=== PATIENT | female | born 1960 | race Caucasian/White ===

== ENCOUNTER → 2019-02-17 | Outpatient (CLI) | payer OTHER ==
[2019-02-17 13:33] LABS: Basophils # (A) 0.1 k/uL (0-0.2); Basophils % (A) 1 %; Eosinophils # (A) 0.2 k/uL (0-0.7); Eosinophils % (A) 2 %; HCT 42.1 % (34.0-46.0); HGB 13.7 gm/dL (11.4-16.0); Lymphocytes # (A) 2.5 k/uL (1.0-4.8); Lymphocytes % (A) 25 %; MCH 30.5 pg (25.0-35.0); MCHC 32.6 g/dL (31.0-37.0); MCV 93.5 fL (80.0-100.0); Mean Platelet Volume 6.8; Monocytes # (A) 0.5 k/uL (0-1.0); Monocytes % (A) 5 %; Neutrophils # (A) 6.8 k/uL (1.3-7.7); Neutrophils % (A) 67 %; Platelet Count 285 k/uL (150-450); RDW 13.3 % (11.5-15.5); WBC 10.2 k/uL (3.8-10.6)
[2019-02-17 15:57] LABS: Erythrocyte Sedimentation Rate 18 mm/hr (0-20)
[2019-02-17 19:58] LABS: Vitamin D 25 Hydroxy 19.2 ng/mL (30.0-100.0)
[2019-02-17 20:53] LABS: Hepatitis C IgG Antibody Non-Reactive (Non-Reactive)
[2019-02-17 21:44] LABS: ALT 19 U/L (8-44); AST 18 U/L (13-35); African American GFR (CKD) 93.5 (60.0-200.0); Albumin/Globulin Ratio 2.19 (1.60-3.17); Alkaline Phosphatase 70 U/L (41-126); BUN/Creat Ratio 18.75 Ratio (12.00-20.00); Calcium 10.1 mg/dL (8.7-10.3); Carbon Dioxide 26.2 mmol/L (21.6-31.8); Chloride 103 mmol/L (96-109); Chol/HDL Ratio 5.52; Cholesterol 243 mg/dL (0-200); Creatine Kinase 89 U/L (26-186); Globulin 2.1 g/dL (1.6-3.3); Glucose 100 mg/dL (70-110); Potassium 4.3 mmol/L (3.5-5.5); Sodium 143 mmol/L (135-145); Total Bilirubin 0.3 mg/dL (0.3-1.2); Total Protein 6.7 g/dL (6.2-8.2); Uric Acid 8.1 mg/dL (2.9-7.7)
== END | disposition home or self-care (01) ==
LOC: LABWHC1 12:40
PROVIDERS: ATTEND Internal Medicine
DX: I10 Essential (primary) hypertension (principal); E78.5 Hyperlipidemia, unspecified; D64.9 Anemia, unspecified; M10.9 Gout, unspecified; E03.9 Hypothyroidism, unspecified; E55.9 Vitamin D deficiency, unspecified; E66.9 Obesity, unspecified
CPT/HCPCS: 36415; 80053; 80061; 82272; 82306; 82550; 83721; 84439; 84443; 84550; 85025; 85652; 86140; 86803

== ENCOUNTER → 2019-03-06 | Outpatient (CLI) | payer OTHER ==
--- NOTE | 2019-03-06 09:40 | US ---
EXAMINATION TYPE: US abdomen complete DATE OF EXAM: 03/06/2019 COMPARISON: NONE CLINICAL HISTORY: R10.11 RUQ ABD PAIN. Right Side ABD pain EXAM MEASUREMENTS: Liver Length: 19.8 cm Gallbladder Wall: 0.3 cm CBD: 0.5 cm Spleen: 10.6 cm Right Kidney: 11.8 x 4.8 x 5.5 cm Left Kidney: 11.5 x 5.9 x 5.5 cm Pancreas: wnl, tail obscured by overlying bowel gas Liver: Enlarged, heterogeneous, nonspecific small hypoechoic lesion left anterior lobe= 1.3 x 0.7 x 1.2 cm Gallbladder: Multiple, mobile gallstones, wall not thickened Evidence for sonographic Mcdermott's sign: No CBD: wnl Spleen: wnl Right Kidney: Lobulated contour, otherwise appeared wnl Left Kidney: Lobulated contour, otherwise appeared wnl Upper IVC: wnl Abd Aorta: wnl The visualized liver is heterogeneous hyperechoic. Evaluation for focal masses suboptimal due to the heterogeneity. The intrahepatic portion of the IVC and proximal abdominal aorta are within normal isaac its. There is evidence of large mobile shadowing gallstones. Common bile duct is unremarkable. The visualized portions of the pancreas are homogenous. The spleen is unremarkable. Kidneys are symmet fide and free of hydronephrosis. No renal lesions are seen. IMPRESSION: Gallstones without secondary ultrasound evidence for acute cholecystitis. Patient with ri ght upper quadrant pain consider HIDA scan to ensure. Probable fatty infiltration of liver.
== END | disposition home or self-care (01) ==
LOC: RADUSWWP 07:53
PROVIDERS: ATTEND Internal Medicine
DX: K80.20 Calculus of gallbladder without cholecystitis without obstruction (principal)
CPT/HCPCS: 76700

== ENCOUNTER → 2019-03-25 | Outpatient (CLI) | payer OTHER ==
--- NOTE | 2019-03-28 10:18 | MM ---
Reason for exam: screening (asymptomatic). Last mammogram was performed 11 years and 6 months ago. History: Family history of breast cancer in grandmother, breast cancer in aunt, and breast cancer in mother. Took hormonal contraceptives for 2 years. Physical Findings: A clinical breast exam by your physician is recommended on an annual basis and results should be correlated with mammographic findings. MG Screening Mammo w CAD Bilateral CC and MLO view(s) were taken. Prior study comparison: September 26, 2007, bilateral diagnostic digital mammog. Finding: There is an equal density (isodense), indistinct round mass located 5 cm from the nipple in the upper outer quadrant of the right breast. New finding since September 26, 2007. ASSESSMENT: Incomplete: need additional imaging evaluation, BI-RAD 0 RECOMMENDATION: Special view mammogram of the right breast. If lesion persists on supplemental views, image directed ultrasound is recommended. [facility] will attempt to contact patient to return for supplemental views and ultrasound if indicated.
== END ==
LOC: RADMAMWWP 16:09
PROVIDERS: ATTEND Internal Medicine
DX: Z12.31 Encounter for screening mammogram for malignant neoplasm of breast (principal)
CPT/HCPCS: 77067

== ENCOUNTER → 2019-04-03 | Outpatient (CLI) | payer OTHER ==
--- NOTE | 2019-04-03 09:10 | NM ---
EXAMINATION TYPE: NM hepatobiliary w EF DATE OF EXAM: 04/03/2019 COMPARISON: US 03/06/19 HISTORY: Biliary tract disorder, K83.9 TECHNIQUE: After the intravenous administration of 4.77 mCi Tc 99m Mebrofenin hepatobiliary scintigra phy is performed. Immediate images post injection. FINDINGS: There is satisfactory initial accumulation of tracer by the liver. The gallbladder is visualized wit hin 10 minutes. The small bowel activity is noted within 24 minutes. At one hour 8 ounces of oral e nsure plus is given to mimic CCK and gallbladder ejection fraction is calculated at 70 %, in the norm al range. Therefore there is no scintigraphic evidence of cystic or common bile duct obstruction to suggest acute cholecystitis or gallbladder dyskinesia. IMPRESSION: Exam is within normal limits.
== END | disposition home or self-care (01) ==
LOC: RADNMMAIN 06:40
PROVIDERS: ATTEND Internal Medicine
DX: K83.9 Disease of biliary tract, unspecified (principal)
CPT/HCPCS: 78226; A9537

== ENCOUNTER → 2019-04-16 | Outpatient (CLI) | payer OTHER ==
--- NOTE | 2019-04-16 10:55 | MM ---
Reason for exam: additional evaluation requested from abnormal screening. Last mammogram was performed 1 month ago. History: Family history of breast cancer in grandmother, breast cancer in aunt, and breast cancer in mother. Took hormonal contraceptives for 2 years. Physical Findings: Nurse did not find any significant physical abnormalities on exam. MG Work Up Mamm w CAD RT Spot compression CC, spot compression MLO, and LM view(s) were taken of the right breast. Prior study comparison: March 25, 2019, bilateral MG screening mammo w CAD. September 26, 2007, bilateral diagnostic digital mammog. There are scattered fibroglandular densities. Benign appearing calcifications in the right breast. The previously seen abnormality resolves on additional views and appears as fibroglandular tissue compatible with summation. No suspicious abnormality. These results were verbally communicated with the patient and result sheet given to the patient on 04/16/19. ASSESSMENT: Benign, BI-RAD 2 RECOMMENDATION: Return to routine screening mammogram schedule for both breasts.
== END | disposition home or self-care (01) ==
LOC: RADMAMWWP 10:02
PROVIDERS: ATTEND Internal Medicine
DX: R92.8 Other abnormal and inconclusive findings on diagnostic imaging of breast (principal)
CPT/HCPCS: 77065

== ENCOUNTER → 2020-06-29 | Outpatient (CLI) | payer OTHER ==
[2020-06-29 15:23] LABS: ALT 20 U/L (8-44); AST 17 U/L (13-35); African American GFR (CKD) 109.1 (60.0-200.0); Albumin/Globulin Ratio 2.25 (1.60-3.17); Alkaline Phosphatase 66 U/L (41-126); BUN/Creat Ratio 22.86 Ratio (12.00-20.00); Bilirubin, Conjugated <0.20 mg/dL (0.20-0.40); Calcium 9.5 mg/dL (8.7-10.3); Carbon Dioxide 32.2 mmol/L (21.6-31.8); Chloride 102 mmol/L (96-109); Chol/HDL Ratio 7.56; Cholesterol 295 mg/dL (0-200); Folate, Serum 20.4 ng/mL; Glucose 98 mg/dL (70-110); Non-African American GFR(CKD) 94.2 (60.0-200.0); Potassium 4.2 mmol/L (3.5-5.5); Sodium 141 mmol/L (135-145); Total Bilirubin 0.4 mg/dL (0.2-1.2); Total Protein 6.5 g/dL (6.2-8.2); Uric Acid 8.3 mg/dL (2.9-7.7)
[2020-06-29 17:21] LABS: Hemoglobin A1C 6.1 % (4.0-6.0)
== END | disposition home or self-care (01) ==
LOC: LABWHC1 09:19
PROVIDERS: ATTEND Internal Medicine
DX: Z00.00 Encounter for general adult medical examination without abnormal findings (principal); E11.9 Type 2 diabetes mellitus without complications; I10 Essential (primary) hypertension; E79.0 Hyperuricemia without signs of inflammatory arthritis and tophaceous disease; E56.9 Vitamin deficiency, unspecified; E03.9 Hypothyroidism, unspecified; E78.5 Hyperlipidemia, unspecified; R53.82 Chronic fatigue, unspecified
CPT/HCPCS: 36415; 80048; 80061; 80076; 82306; 82607; 82746; 83036; 83721; 84439; 84443; 84550

== ENCOUNTER 2020-07-24 08:32 | Emergency (ER) | payer OTHER ==
[2020-07-24 08:36] VITALS: BP 132/83; PULSE 74; RESP 16; TEMP 98.4
--- NOTE | 2020-07-24 08:52 | ED ---
General Adult HPI - General Chief complaint: Extremity Injury, Lower Stated complaint: slip & fall Time Seen by Provider: 07/24/20 08:34 Source: patient, RN notes reviewed Mode of arrival: ambulatory Limitations: no limitations - History of Present Illness Initial comments: Patient is a pleasant 59-year-old female presenting to the emergency Department with complaints of right knee pain. Patient states 3 days ago she slipped and fell on the ice. Patient landed gently on her right knee. Patient has discomfort of the right knee since that time. No other area of injury or concern. Patient is a with pain. No head injury or loss of consciousness. No neck or back pain. No history of chronic knee pain. - Related Data Home Medications Medication Instructions Recorded Confirmed ALPRAZolam [Xanax XR] 1 mg PO BID 07/24/20 07/24/20 Atorvastatin [Lipitor] 40 mg PO DAILY 07/24/20 07/24/20 Cholecalciferol (Vitamin D3) 125 mcg PO DAILY 07/24/20 07/24/20 [Vitamin D3 (5000 Iu)] Dextroamphetamine/Amphetamine 20 mg PO BID 07/24/20 07/24/20 [Adderall] FLUoxetine HCL [PROzac] 20 mg PO BID 07/24/20 07/24/20 Metoprolol Succinate [Toprol XL] 25 mg PO DAILY 07/24/20 07/24/20 Mirtazapine [Remeron] 30 mg PO HS 07/24/20 07/24/20 [place]-3 Fatty Acids [[place]-3] 1,000 mg PO DAILY 07/24/20 07/24/20 Pantoprazole Sodium [Protonix] 40 mg PO DAILY 07/24/20 07/24/20 Terbinafine [LamISIL] 250 mg PO DAILY 07/24/20 07/24/20 traZODone HCL [Desyrel] 100 mg PO HS 07/24/20 07/24/20 Allergies Allergy/AdvReac Type Severity Reaction Status Date / Time No Known Allergies Allergy Verified 07/24/20 09:14 Review of Systems ROS Statement: Those systems with pertinent positive or pertinent negative responses have been documented in the HPI. ROS Other: All systems not noted in ROS Statement are negative. Constitutional: Denies: fever Eyes: Denies: eye pain ENT: Denies: ear pain Respiratory: Denies: cough Cardiovascular: Denies: chest pain Endocrine: Denies: fatigue Gastrointestinal: Denies: abdominal pain Genitourinary: Denies: dysuria Musculoskeletal: Reports: as per HPI. Denies: back pain Skin: Denies: rash Neurological: Denies: headache Past Medical History Past Medical History: Musculoskeletal Disorder Additional Past Medical History / Comment(s): fell & fx. right wrist [id number] wearing cast History of Any Multi-Drug Resistant Organisms: None Reported Past Surgical History: Section, Hysterectomy Past Anesthesia/Blood Transfusion Reactions: No Reported Reaction Past Psychological History: No Psychological Hx Reported Smoking Status: Never smoker Past Alcohol Use History: None Reported Past Drug Use History: None Reported General Exam Limitations: no limitations General appearance: alert, in no apparent distress Eye exam: Present: normal appearance Neck exam: Present: normal inspection Respiratory exam: Present: normal lung sounds bilaterally Cardiovascular Exam: Present: regular rate, normal rhythm GI/Abdominal exam: Present: soft. Absent: tenderness Extremities exam: Present: tenderness (Mild swelling right knee. Moderate tenderness of the patella), other (Knee is stable) Neurological exam: Present: alert Psychiatric exam: Present: normal affect, normal mood Skin exam: Present: normal color Course Vital Signs 07/24/20 08:32 Temperature 98.4 F Pulse Rate 74 Respiratory 16 Rate Blood Pressure 132/83 O2 Sat by Pulse 95 Oximetry Medical Decision Making - Medical Decision Making Patient reevaluated and updated. No significant tenderness of the distal medial femur. Patient agrees old injury there. - Radiology Data Radiology results: image reviewed (X-ray right knee shows probable old injury distal or medial femoral condyle. Effusion.) Disposition Clinical Impression: Knee injury Disposition: HOME SELF-CARE Condition: Stable Instructions (If sedation given, give patient instructions): Knee Pain (ED) Additional Instructions: Rest and ice. Please follow-up with primary care physician in the next few days for recheck. Use knee immobilizer, provided. [id number] Motrin as needed. Return for increased pain, swelling, fever, worsening or changing symptoms or other concerns. Is patient prescribed a controlled substance at d/c from ED?: No Referrals: Larry Balbeuna MD [Primary Care Provider] - 1-2 days Time of Disposition: 09:19
--- NOTE | 2020-07-24 09:09 | XR ---
EXAMINATION TYPE: XR knee complete RT DATE OF EXAM: 07/24/2020 CLINICAL HISTORY: Fall injury with pain TECHNIQUE: Three views of the right knee are obtained. COMPARISON: None. FINDINGS: [id number] tricompartment joint space loss with relative sparing lateral tibiofemoral compartment. Curvilinear ossifications or calcifications distal medial femoral condyle favored prod uct of old MCL injury or Chadd Stieda lesion. Correlate clinically and with old outside films if available. Moderate suprapatellar joint effusion with increased soft tissue density. IMPRESSION: As above.
[2020-07-24] MEDS ORDERED: ACET/COD 300 MG/30 MG STARTER PACK 6 TAB BTL PO STA (09:20)
[2020-07-24] MEDS ORDERED: IBUPROFEN 600 MG STARTER PACK 4 TAB BTL PO STA (09:20)
== END 2020-07-24 09:43 | disposition home or self-care (01) ==
LOC: EC 08:32
DX: S89.91XA Unspecified injury of right lower leg, initial encounter (principal); Z90.710 Acquired absence of both cervix and uterus; W00.0XXA Fall on same level due to ice and snow, initial encounter
CPT/HCPCS: 99283

== ENCOUNTER → 2020-09-29 | Outpatient (CLI) | payer OTHER ==
[2020-09-29 19:08] LABS: Hemoglobin A1C 6.6 % (4.0-6.0)
[2020-09-30 00:35] LABS: Uric Acid 7.7 mg/dL (2.9-7.7)
== END | disposition home or self-care (01) ==
LOC: LABWHC1 06:58
PROVIDERS: ATTEND Internal Medicine
DX: I10 Essential (primary) hypertension (principal); M10.9 Gout, unspecified; E11.65 Type 2 diabetes mellitus with hyperglycemia
CPT/HCPCS: 36415; 82947; 83036; 84550; 87338

== ENCOUNTER → 2020-11-04 | Outpatient (CLI) | payer OTHER ==
[2020-11-04 14:45] LABS: African American GFR (CKD) 114.8 (60.0-200.0); Anion Gap 7.8 mmol/L (4.00-12.00); Calcium 9.1 mg/dL (8.7-10.3); Carbon Dioxide 26.2 mmol/L (21.6-31.8); Non-African American GFR(CKD) 99.1 (60.0-200.0); Potassium 4.1 mmol/L (3.5-5.5)
== END | disposition home or self-care (01) ==
LOC: LABWHC1 06:56
PROVIDERS: ATTEND Internal Medicine
DX: E11.9 Type 2 diabetes mellitus without complications (principal)
CPT/HCPCS: 36415; 80048

== ENCOUNTER 2020-11-30 | Day surgery (SDC) | payer OTHER | END 2020-11-30 16:40 | disposition home or self-care (01) | DX: S83.281A Other tear of lateral meniscus, current injury, right knee, initial encounter (principal); S83.241A Other tear of medial meniscus, current injury, right knee, initial encounter; M94.261 Chondromalacia, right knee; M65.9 Synovitis and tenosynovitis, unspecified; I10 Essential (primary) hypertension; F32.9 Major depressive disorder, single episode, unspecified; F41.9 Anxiety disorder, unspecified; F90.9 Attention-deficit hyperactivity disorder, unspecified type; Z79.899 Other long term (current) drug therapy | CPT/HCPCS: 29880; 29876; J2250; J2405; J0690; J2001; J3010; J1885; J2704; J1170 ==

== ENCOUNTER → 2021-08-10 | Outpatient (CLI) | payer OTHER ==
--- NOTE | 2021-08-10 12:19 | XR ---
EXAMINATION TYPE: XR chest 2V DATE OF EXAM: 08/10/2021 COMPARISON: NONE HISTORY: Shortness of breath TECHNIQUE: Frontal and lateral views of the chest are obtained. FINDINGS: Scattered senescent parenchymal changes noted. Hyperinflation compatible with COPD. No evidence for infiltrate. No evidence for atelectasis. Heart size is stable. Mediastinal structures are stable and grossly unremarkable. No evidence for hilar prominence. Degenerative changes dorsal spine. IMPRESSION: 1. No evidence for acute pulmonary disease.
[2021-08-10 23:13] LABS: Basophils # (A) 0.05 X 10*3/uL (0.00-0.10); Basophils % (A) 0.6 %; Eosinophils # (A) 0.22 X 10*3/uL (0.04-0.35); Eosinophils % (A) 2.6 %; HGB 12.8 g/dL (12.0-15.0); Immature Grans, Automated 0.7 %; Lymphocytes # (A) 2.35 X 10*3/uL (0.90-5.00); Lymphocytes % (A) 27.3 %; MCH 30.4 pg (27.0-32.0); MCHC 31.2 g/dL (32.0-37.0); MCV 97.4 fL (80.0-97.0); Mean Platelet Volume 10.2 fL (9.5-12.2); Monocytes # (A) 0.42 X 10*3/uL (0.20-1.00); Monocytes % (A) 4.9 %; NRBC Per 100 WBC 0 /100 WBCS (0.0-0.0); Neutrophils # (A) 5.51 X 10*3/uL (1.80-7.70); Neutrophils % (A) 63.9 %; Platelet Count 334 X 10*3/uL (140-440); RBC 4.21 X 10*6/uL (4.10-5.20); RDW 13.3 % (11.5-14.5); WBC 8.61 X 10*3/uL (4.50-10.00)
[2021-08-11 00:44] LABS: ALT 22 U/L (8-44); AST 20 U/L (13-35); African American GFR (CKD) 113.5 (60.0-200.0); Albumin 4.3 g/dL (3.8-4.9); Albumin/Globulin Ratio 1.64 (1.60-3.17); Alkaline Phosphatase 70 U/L (41-126); BUN/Creat Ratio 27.47 Ratio (12.00-20.00); Blood Urea Nitrogen 16.7 mg/dL (9.0-27.0); Calcium 9.6 mg/dL (8.7-10.3); Carbon Dioxide 24.6 mmol/L (20.0-27.5); Chloride 104 mmol/L (96-109); Chol/HDL Ratio 6.95 Ratio; Globulin 2.6 g/dL (1.6-3.3); Glucose 109 mg/dL (70-110); LDL Cholesterol,Calculated 171.1 mg/dL (0.0-131.0); Potassium 3.7 mmol/L (3.5-5.5); Sodium 142 mmol/L (135-145)
[2021-08-11 01:12] LABS: Erythrocyte Sedimentation Rate 26 mm/Hr (0-30)
== END | disposition home or self-care (01) ==
LOC: LABWHC1 11:47
PROVIDERS: ATTEND Internal Medicine
DX: D64.9 Anemia, unspecified (principal); I10 Essential (primary) hypertension; E78.5 Hyperlipidemia, unspecified; E11.65 Type 2 diabetes mellitus with hyperglycemia; E03.9 Hypothyroidism, unspecified; E66.9 Obesity, unspecified; J12.9 Viral pneumonia, unspecified; J06.9 Acute upper respiratory infection, unspecified
CPT/HCPCS: 36415; 71046; 80053; 80061; 83036; 84443; 85025; 85652